=== PATIENT | male | born 1985 | race Caucasian/White ===

== ENCOUNTER 2021-06-15 14:21 | Emergency (ER) | payer BC, OTHER | END 2021-06-15 16:12 | disposition home or self-care (01) | LOC: CSHERS 14:21 | DX: K40.90 Unilateral inguinal hernia, without obstruction or gangrene, not specified as recurrent (principal); R05.9 Cough, unspecified; F17.220 Nicotine dependence, chewing tobacco, uncomplicated | CPT/HCPCS: 99283 ==